=== PATIENT | female | born 1995 | race Caucasian/White ===

== ENCOUNTER 2016-06-10 17:26 | Emergency (ER) | payer OTHER, SELFPAY ==
[2016-06-10] MEDS ORDERED: KETOROLAC 30 MG/ML VIAL (J1885) As Ordered ONE (19:56)
--- NOTE | 2016-06-10 20:10 | REPUSA ---
CT of the abdomen and pelvis without contrast Clinical statement: Pain. Technique: Multiple axial CT images were obtained from the base of the lungs to the floor of the pelv is utilizing 5 mm axial slices without administration of contrast. Coronal and sagittal reconstructio ns were also obtained. No comparison is available. Findings: Chest: The visualized lung bases are clear. Abdomen: The kidneys are normal in size bilaterally. There is no evidence of hydronephrosis or nephro lithiasis. The liver, spleen, pancreas, gallbladder and adrenal glands are unremarkable. The aorta de monstrates normal caliber and contour. There is no abdominal lymphadenopathy or ascites. Pelvis: The bowel is unremarkable, with no obstructive or inflammatory changes. The appendix is nya l. The urinary bladder is within normal limits. There is no pelvic lymphadenopathy or ascites. The ot her pelvic structures appear unremarkable. Bones: There are no suspicious osseous abnormalities seen. Impression: Unremarkable CT examination of the abdomen and pelvis.
[2016-06-10 20:15] LABS: BASO % 0.4 % (0.0-1.0); EOS # 0.1 K/mm3 (0.0-0.50); EOS % 1.5 % (0.0-3.0); LARGE UNSTAINED CELL # 0.2 K/mm3 (0.0-0.4); LARGE UNSTAINED CELL % 2.1 % (0.0-4.0); LYMPH # 2.4 K/mm3 (1.5-6.5); MEAN CORPUSCULAR HGB CONC 33.8 g/dl (32.0-36.5); MEAN CORPUSCULAR VOLUME 88.9 fl (80.0-96.0); MONO # 0.5 K/mm3 (0.0-0.8); MONO % 5.8 % (0.0-5.0); NEUTROPHILS # 5.1 K/mm3 (1.8-7.7); NEUTROPHILS % 61.1 % (36.0-66.0); PLATELET COUNT, AUTOMATED 298 k/mm3 (150-450); RED CELL DISTRIBUTION WIDTH 12.2 % (11.5-14.5); WHITE BLOOD COUNT 8.3 K/mm3 (4.0-10.0)
[2016-06-10 20:40] LABS: ANION GAP 6 MEQ/L (8-16); BLOOD UREA NITROGEN 9 MG/DL (7-18); CALCIUM LEVEL 9.5 MG/DL (8.5-10.1); CARBON DIOXIDE LEVEL 28 MEQ/L (21-32); CHLORIDE LEVEL 108 MEQ/L (98-107); GLUCOSE, FASTING 96 MG/DL (70-105); POTASSIUM SERUM 4.1 MEQ/L (3.5-5.1); SODIUM LEVEL 142 MEQ/L (136-145)
[2016-06-10] MEDS ORDERED: BACTRIM 160MG/800MG DS TAB As Ordered ONE (20:42)
--- NOTE | 2016-06-10 20:53 | EDDOCDS ---
Physician Documentation [facility] Name: Philippe Galvez Age: 20 yrs Sex: Female : 1995 Arrival Date: 06/10/2016 Time: 17:26 Bed I5 / M5 Private MD: NO PRIMARY PHYSICIAN, . Disposition: 06/10/16 20:44 Discharged to Home/Self Care. Impression: Urinary tract infection, site not specified, Other abdominal pain - bilateral flank pain. - Condition is Stable. - Discharge Instructions: Urinary Tract Infection. - Prescriptions for Bactrim DS 800- 160 mg Oral Tablet - take 1 tablet by ORAL route every 12 hours for 10 days; 20 tablet. - Medication Reconciliation, Local Pharmacy Hours form. - Follow up: Emergency Department; When: As needed; Reason: Worsening of conditions. [facility] up: [facility]; When: Call to arrange an appointment; Reason: Recheck today's complaints, Continuance of care, To establish care. - Problem is new. - Symptoms are unchanged. - Notes: YOUR BLOOD WORK AND CT SCAN DID NOT SHOW ANY SIGNS OF KIDNEY STONE OR KIDNEY INFECTION TODAY. PLEASE FOLLOW UP WITH YOUR PRIMARY CARE PROVIDER IN NEXT WEEK TO RECHECK YOUR SYMPTOMS. ANY WORSENING SYMPTOMS, PLEASE RETURN TO THE ER. TAKE THE ANTIBIOTIC DIRECTED UNTIL IT IS GONE. Historical: - Allergies: no known allergies; - Home Meds: 1. cranberry 400 mg oral cap daily - PMHx: Anemia; Arthritis; - PSHx: none; - Social history: Smoking status: Patient states former smoker of tobacco. No barriers to communication noted, The patient speaks fluent Kitt[place]. - Family history: Not pertinent. - : The pt / caregiver states he / she is not on anticoagulants. Home medication list is obtained from the patient. - Exposure Risk Screening:: None identified. 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 5 in. (165.10 cm) (R); 20:47 BP 121 / 78; Pulse 78; Resp 18; Temp 99.8(TE); Pulse Ox 97% on R/A; Pain 0/10; cp1 17:28 Body Mass Index 17.81 (48.53 kg, 165.10 cm) dd6 MDM: 18:01 UCG by Nursing ordered. dt4 18:02 Urinalysis Ordered. EDMS 18:02 Urine Culture Ordered. EDMS 19:30 IV Saline Lock ordered. dt4 19:30 ketorolac 15 mg IVP once ordered. dt4 19:32 CBC with Diff Ordered. EDMS 19:32 Basic Metabolic Profile Ordered. EDMS 19:32 CRP Ordered. EDMS 19:32 CT ABD & PELVIS: No Contrast Ordered. EDMS 20:25 Financial registration complete. zo 20:26 [facility] Payment Agreement was scanned into [employer] and attached to record. zo 20:37 Trimethoprim-Sulfamethoxazole 160 mg-800 mg (DS) 1 tabs PO once ordered. dt4 20:37 Urinalysis Reviewed. dt4 20:37 CBC with Diff Reviewed. dt4 20:37 CT ABD & PELVIS: No Contrast Reviewed. dt4 Point of Care Testing: Urine : 18:59 hCG Reading: Negative; Control Reading: Positive; ct3 Ranges: Administered Medications: 20:08 Drug: ketorolac 15 mg [ketorolac 30 mg/mL (1 mL) injection solution (0.5 mL)] Route: jmb IVP; Site: left antecubital; 20:46 Drug: Trimethoprim-Sulfamethoxazole 1 tabs [sulfamethoxazole 800 mg-trimethoprim 160 mg cp1 tablet (1 tabs)] Route: PO; Signatures: Dispatcher [facility] EDVT Marilu Miles RN RN kmg1 Tino Warren Rosemary, RN RN rs3 Daniel Roberts RN RN jmb Tschudi, Diane, PA-C PA-C dt4 Gledna David LPN cp1 The chart was reviewed and I authenticate all verbal orders and agree with the evaluation and treatment provided.Attachments: 20:26 [facility] Payment Agreement zo MTDD
--- NOTE | 2016-06-10 20:53 | EDDOCDS ---
Nurse's Notes [facility] Name: Philippe Galvez Age: 20 yrs Sex: Female : 1995 Arrival Date: 06/10/2016 Time: 17:26 Bed I5 / M5 Private MD: NO PRIMARY PHYSICIAN, . Diagnosis: Urinary tract infection, site not specified;Other abdominal pain-bilateral flank pain Presentation: 06/10 17:38 Presenting complaint: Patient states: pain/urgency with urination, Left flank pain for rs3 4 days. treated for UTI last week with antibiotic. Adult Sepsis Screening: Adult Sepsis Screening: Patient's respiratory rate is less than 22. Systolic blood pressure is greater than 100. Patient has a qSOFA score of 0- Negative Sepsis Screen. Suicide/Homicide risk assessment- the patient denies having any suicidal and/or homicidal ideations and does not present with any other emotional, behavioral or mental health complaints. Status: Patient is not a services rep or dependent. Transition of care: patient was not received from another setting of care. 17:38 Acuity: BROOK Level 3 rs3 17:38 Method Of Arrival: Walkin/Carried/Asstd rs3 Triage Assessment: 17:40 General: Appears in no apparent distress. Pain: Denies pain. HIV screening NA for this rs3 visit Offered previously. 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 cranberry 400 mg oral cap daily - PMHx: Anemia; Arthritis; - PSHx: none; - Social history: Smoking status: Patient states former smoker of tobacco. No barriers to communication noted, The patient speaks fluent German. - Family history: Not pertinent. - : The pt / caregiver states he / she is not on anticoagulants. Home medication list is obtained from the patient. - Exposure Risk Screening:: None identified. Screenin:12 Screening information is obtained from the patient. Fall risk: No risks identified. kmg1 Assistance ADL's: requires no assistance with activities of daily living. Abuse/DV Screen: The patient / caregiver reports he/she is: not in a situation that causes fear, pain or injury. Nutritional screening: No deficits noted. Advance Directives: Currently, there is no health care proxy. There is no active DNR order. home support is adequate. Assessment: 19:12 General: Appears uncomfortable, Behavior is cooperative, crying. Pain: Location: right kmg1 flank, right lower back, suprapubic area, right inguinal area and right iliac crest Pain currently is 10 out of 10 on a pain scale. Quality of pain is described as pressure, sharp. : Reports pain in right in suprapubic area flank(s) in lower back Denies urinary frequency, urgency. 20:03 General: Appears in no apparent distress, comfortable, Behavior is appropriate for age, jmb cooperative. Neurological: Level of Consciousness is awake, alert, obeys commands, Oriented to person, place, time, Speech is normal, Facial symmetry appears normal, Facial symmetry: tongue is midline. Cardiovascular: Capillary refill < 3 seconds Heart tones present Pulses are all present. Respiratory: Airway is patent Respiratory effort is even, unlabored, Respiratory pattern is regular, symmetrical, Breath sounds are clear bilaterally. GI: Abdomen is non- distended Bowel sounds present X 4 quads. Abd is soft X 4 quads. Derm: Skin is pink, warm & dry. Musculoskeletal: Range of motion intact in all extremities. 20:50 General: Patient instructed on discharge instructions. Patient asked if there were any jmb questions regarding discharge, patient stated no. IV discontinued per hospital policy. Patient signed discharge instructions. Patient discharged in stable condition. . Vital Signs: 17:28 BP 132 / 74; Pulse 80; Resp 18 S; Temp 98.4(O); Pulse Ox 100% on R/A; Weight 48.53 kg dd6 (R); Height 5 ft. 5 in. (165.10 cm) (R); 20:47 BP 121 / 78; Pulse 78; Resp 18; Temp 99.8(TE); Pulse Ox 97% on R/A; Pain 0/10; cp1 17:28 Body Mass Index 17.81 (48.53 kg, 165.10 cm) dd6 Vitals: 17:28 Log In Time: June 10, 2016 at 17:26. dd6 ED Course: 17:28 Patient visited by Marvin Brownlee PCA. dd6 17:28 NO PRIMARY PHYSICIAN, . is Private Physician. dd6 17:28 Patient moved to Waiting dd6 17:29 Patient moved to Pre RCE dd6 17:39 Triage Initiated rs3 18:53 Urine Culture Sent. ct3 18:53 Urinalysis Sent. ct3 19:10 Patient moved to Triage 3 ms2 19:12 The patient / caregiver is instructed regarding the plan of care and ED course. kmg1 19:16 Sujey Childress PA-C is PHCP. dt4 19:16 Artis Argueta DO is Attending Physician. dt4 19:16 Patient visited by Sujey Childress PA-C. dt4 19:16 Patient visited by Marilu Miles RN. kmg1 19:19 Patient moved to I5 / kmg1 19:52 Patient visited by Glenda David LPN. cp1 20:03 CBC with Diff Sent. jmb 20:03 Basic Metabolic Profile Sent. aidenb 20:03 CRP Sent. aidneb 20:03 Inserted saline lock: 20 gauge in left antecubital area and blood collected. The [facility] patient tolerated the procedure well. Labs drawn. (by ED staff). Sent per order to lab. 20:05 Patient visited by Daniel Roberts RN. b 20:20 CT ABD & PELVIS: No Contrast Returned. EDMS 20:26 [facility] Payment Agreement was scanned into [employer] and attached to record. zo 20:41 Patient visited by Glenda David LPN. cp1 20:43 [facility] is Referral Physician. dt4 20:47 Discontinued lock bleeding controlled, pressure dressing applied, No redness/swelling cp1 at site. 20:50 No procedures done that require assistance. lester Administered Medications: 20:08 Drug: ketorolac 15 mg [ketorolac 30 mg/mL (1 mL) injection solution (0.5 mL)] Route: b IVP; Site: left antecubital; 20:46 Drug: Trimethoprim-Sulfamethoxazole 1 tabs [sulfamethoxazole 800 mg-trimethoprim 160 mg cp1 tablet (1 tabs)] Route: PO; Point of Care Testing: Urine : 18:59 hCG Reading: Negative; Control Reading: Positive; ct3 Ranges: Order Results: Lab Order: Urinalysis; SPEC'M 06/10/16 18:52 Test: APPEARANCE, URINE; Value: CLOUDY; Range: CLEAR; Abnormal: Above high normal; Status: F Test: COLOR, URINE; Value: YELLOW; Range: YELLOW; Status: F Test: PH,URINE; Value: 6.0; Range: 5.0-9.0; Units: UNITS; Status: F Test: SPECIFIC GRAVITY URINE AUTO; Value: 1.017; Range: 1.002-1.035; Status: F Test: PROTEIN, URINE AUTO; Value: NEGATIVE; Range: NEGATIVE; Units: mg/dL; Status: F Test: GLUCOSE, URINE (UA) AUTO; Value: NEGATIVE; Range: NEGATIVE; Units: mg/dL; Status: F Test: KETONE, URINE AUTO; Value: NEGATIVE; Range: NEGATIVE; Units: mg/dL; Status: F Test: UROBILINOGEN, URINE AUTO; Value: 0.2; Range: 0.0-2.0; Units: mg/dL; Status: F Test: BILIRUBIN, URINE AUTO; Value: NEGATIVE; Range: NEGATIVE; Status: F Test: NITRITE, URINE AUTO; Value: NEGATIVE; Range: NEGATIVE; Status: F Test: LEUKOCYTE ESTERASE, URINE AUTO; Value: 3+; Range: NEGATIVE; Abnormal: Above high normal; Status: F Test: BLOOD, URINE BLOOD; Value: 2+; Range: NEGATIVE; Abnormal: Above high normal; Status: F Test: WBC, URINE AUTO; Value: TNTC; Range: 0-3; Abnormal: Above high normal; Units: /HPF; Status: F Test: RBC, URINE AUTO; Value: 35; Range: 0-3; Abnormal: Above high normal; Units: /HPF; Status: F Test: BACTERIA, URINE AUTO; Value: 1+; Range: NEGATIVE; Abnormal: Above high normal; Status: F Test: SQUAMOUS EPITHELIAL CELL UR AU; Value: 1; Range: 0-6; Units: /HPF; Status: F Test: MUCUS, URINE; Value: SMALL; Range: NEGATIVE; Status: F Test: HYALINE CAST, URINE AUTO; Value: 0; Range: 0-1; Units: /LPF; Status: F Lab Order: CBC with Diff; SPEC'M 06/10/16 19:56 Test: WHITE BLOOD COUNT; Value: 8.3; Range: 4.0-10.0; Units: K/mm3; Status: F Test: RED BLOOD COUNT; Value: 4.40; Range: 4.00-5.40; Units: M/mm3; Status: F Test: HEMOGLOBIN; Value: 13.2; Range: 12.0-16.0; Units: g/dl; Status: F Test: HEMATOCRIT; Value: 39.1; Range: 36.0-47.0; Units: %; Status: F Test: MEAN CORPUSCULAR VOLUME; Value: 88.9; Range: 80.0-96.0; Units: fl; Status: F Test: MEAN CORPUSCULAR HEMOGLOBIN; Value: 30.0; Range: 27.0-33.0; Units: pg; Status: F Test: MEAN CORPUSCULAR HGB CONC; Value: 33.8; Range: 32.0-36.5; Units: g/dl; Status: F Test: RED CELL DISTRIBUTION WIDTH; Value: 12.2; Range: 11.5-14.5; Units: %; Status: F Test: PLATELET COUNT, AUTOMATED; Value: 298; Range: 150-450; Units: k/mm3; Status: F Test: NEUTROPHILS %; Value: 61.1; Range: 36.0-66.0; Units: %; Status: F Test: LYMPH %; Value: 29.0; Range: 24.0-44.0; Units: %; Status: F Test: MONO %; Value: 5.8; Range: 0.0-5.0; Abnormal: Above high normal; Units: %; Status: F Test: EOS %; Value: 1.5; Range: 0.0-3.0; Units: %; Status: F Test: BASO %; Value: 0.4; Range: 0.0-1.0; Units: %; Status: F Test: LARGE UNSTAINED CELL %; Value: 2.1; Range: 0.0-4.0; Units: %; Status: F Test: NEUTROPHILS #; Value: 5.1; Range: 1.8-7.7; Units: K/mm3; Status: F Test: LYMPH #; Value: 2.4; Range: 1.5-6.5; Units: K/mm3; Status: F Test: MONO #; Value: 0.5; Range: 0.0-0.8; Units: K/mm3; Status: F Test: EOS #; Value: 0.1; Range: 0.0-0.50; Units: K/mm3; Status: F Test: BASO #; Value: 0.0; Range: 0.0-0.2; Units: K/mm3; Status: F Test: LARGE UNSTAINED CELL #; Value: 0.2; Range: 0.0-0.4; Units: K/mm3; Status: F Lab Order: Basic Metabolic Profile; SPEC'M 06/10/16 19:56 Test: GLUCOSE, FASTING; Value: 96; Range: 70-105; Units: MG/DL; Status: F Test: BLOOD UREA NITROGEN; Value: 9; Range: 7-18; Units: MG/DL; Status: F Test: CREATININE FOR GFR; Value: 0.70; Range: 0.55-1.02; Units: MG/DL; Status: F Test: SODIUM LEVEL; Value: 142; Range: 136-145; Units: MEQ/L; Status: F Test: POTASSIUM SERUM; Value: 4.1; Range: 3.5-5.1; Units: MEQ/L; Status: F Test: CHLORIDE LEVEL; Value: 108; Range: 98-107; Abnormal: Above high normal; Units: MEQ/L; Status: F Test: CARBON DIOXIDE LEVEL; Value: 28; Range: 21-32; Units: MEQ/L; Status: F Test: ANION GAP; Value: 6; Range: 8-16; Abnormal: Below low normal; Units: MEQ/L; Status: F Test: CALCIUM LEVEL; Value: 9.5; Range: 8.5-10.1; Units: MG/DL; Status: F Lab Order: CRP; SPEC'M 06/10/16 19:56 Test: C REACTIVE PROTEIN QUANTITATIV; Value: < 0.30; Range: 0.00-0.30; Units: MG/DL; Status: F Radiology Order: CT ABD & PELVIS: No Contrast Test: CT ABD & PELVIS: No Contrast REASON FOR EXAMINATION: BILAT FLANK PAIN, HX OF UTI AND STONES; ; CT of the abdomen and pelvis without contrast; Clinical statement: Pain.; Technique: Multiple axial CT images were obtained from the base of the lungs to the floor of the pelv; is utilizing 5 mm axial slices without administration of contrast. Coronal and sagittal reconstructio; ns were also obtained.; No comparison is available.; Findings:; Chest: The visualized lung bases are clear.; Abdomen: The kidneys are normal in size bilaterally. There is no evidence of hydronephrosis or nephro; lithiasis. The liver, spleen, pancreas, gallbladder and adrenal glands are unremarkable. The aorta de; monstrates normal caliber and contour. There is no abdominal lymphadenopathy or ascites.; Pelvis: The bowel is unremarkable, with no obstructive or inflammatory changes. The appendix is nya; l. The urinary bladder is within normal limits. There is no pelvic lymphadenopathy or ascites. The ot; her pelvic structures appear unremarkable.; Bones: There are no suspicious osseous abnormalities seen.; Impression: Unremarkable CT examination of the abdomen and pelvis.; ; Outcome: 20:44 Discharge ordered by Provider. dt4 20:50 Discharge Assessment: Patient awake, alert and oriented x 3. No cognitive and/or jmb functional deficits noted. Patient verbalized understanding of disposition instructions. Patient awake and alert. obeys commands, Oriented to person, place and time. Patient verbalized understanding of disposition instructions. Patient has no functional deficits. patient administered narcotics - no. The following High Risk Discharge criteria are identified: None. Discharged to home ambulatory, with significant other. Condition: stable Condition: improved. Discharge instructions given to patient, Instructed on discharge instructions, follow up and referral plans. medication usage, Demonstrated understanding of instructions, medications, Pt was receptive of discharge instructions/ teaching. Prescriptions given X 1. CT Study completed. Property sent home with patient. 20:52 Patient left the ED. lester Signatures: Dispatcher [employer] EDMS Nicolás Marinelli RN RN ms2 Marilu Miles RN RN kmg1 Tino Warren Daniell, CREAM BUYER CREAM BUYER dd6 Marianela Guzman RN RN rs3 Glenda David,BLANKET FOLDER BLANKET FOLDER cp1 Chloe Arnett, CREAM BUYER CREAM BUYER ct3 Daniel Roberts RN RN jmb Tschudi, Diane, NOEMI PADelC dt4 MTDD
--- NOTE | 2016-06-12 21:54 | EDDOCDS ---
Nurse's Notes [facility] Name: Philippe Galvez Age: 20 yrs Sex: Female : 1995 Arrival Date: 06/10/2016 Time: 17:26 Bed I5 / M5 Private MD: NO PRIMARY PHYSICIAN, . Diagnosis: Urinary tract infection, site not specified;Other abdominal pain-bilateral flank pain Presentation: 06/10 17:38 Presenting complaint: Patient states: pain/urgency with urination, Left flank pain for rs3 4 days. treated for UTI last week with antibiotic. Adult Sepsis Screening: Adult Sepsis Screening: Patient's respiratory rate is less than 22. Systolic blood pressure is greater than 100. Patient has a qSOFA score of 0- Negative Sepsis Screen. Suicide/Homicide risk assessment- the patient denies having any suicidal and/or homicidal ideations and does not present with any other emotional, behavioral or mental health complaints. 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 Transition of care: patient was not received from another setting of care. 17:38 Acuity: BROOK Level 3 rs3 17:38 Method Of Arrival: Walkin/Carried/Asstd rs3 Triage Assessment: 17:40 General: Appears in no apparent distress. Pain: Denies pain. HIV screening NA for this rs3 visit Offered previously. 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 cranberry 400 mg oral cap daily - PMHx: Anemia; Arthritis; - PSHx: none; - Social history: Smoking status: Patient states former smoker of tobacco. No barriers to communication noted, The patient speaks fluent Portuguese. - Family history: Not pertinent. - : The pt / caregiver states he / she is not on anticoagulants. Home medication list is obtained from the patient. - Exposure Risk Screening:: None identified. Screenin:12 Screening information is obtained from the patient. Fall risk: No risks identified. kmg1 Assistance ADL's: requires no assistance with activities of daily living. Abuse/DV Screen: The patient / caregiver reports he/she is: not in a situation that causes fear, pain or injury. Nutritional screening: No deficits noted. Advance Directives: Currently, there is no health care proxy. There is no active DNR order. home support is adequate. Assessment: 19:12 General: Appears uncomfortable, Behavior is cooperative, crying. Pain: Location: right kmg1 flank, right lower back, suprapubic area, right inguinal area and right iliac crest Pain currently is 10 out of 10 on a pain scale. Quality of pain is described as pressure, sharp. : Reports pain in right in suprapubic area flank(s) in lower back Denies urinary frequency, urgency. 20:03 General: Appears in no apparent distress, comfortable, Behavior is appropriate for age, jmb cooperative. Neurological: Level of Consciousness is awake, alert, obeys commands, Oriented to person, place, time, Speech is normal, Facial symmetry appears normal, Facial symmetry: tongue is midline. Cardiovascular: Capillary refill < 3 seconds Heart tones present Pulses are all present. Respiratory: Airway is patent Respiratory effort is even, unlabored, Respiratory pattern is regular, symmetrical, Breath sounds are clear bilaterally. GI: Abdomen is non- distended Bowel sounds present X 4 quads. Abd is soft X 4 quads. Derm: Skin is pink, warm & dry. Musculoskeletal: Range of motion intact in all extremities. 20:50 General: Patient instructed on discharge instructions. Patient asked if there were any jmb questions regarding discharge, patient stated no. IV discontinued per hospital policy. Patient signed discharge instructions. Patient discharged in stable condition. . Vital Signs: 17:28 BP 132 / 74; Pulse 80; Resp 18 S; Temp 98.4(O); Pulse Ox 100% on R/A; Weight 48.53 kg dd6 (R); Height 5 ft. 5 in. (165.10 cm) (R); 20:47 BP 121 / 78; Pulse 78; Resp 18; Temp 99.8(TE); Pulse Ox 97% on R/A; Pain 0/10; cp1 17:28 Body Mass Index 17.81 (48.53 kg, 165.10 cm) dd6 Vitals: 17:28 Log In Time: June 10, 2016 at 17:26. dd6 ED Course: 17:28 Patient visited by Marvin Brownlee PCA. dd6 17:28 NO PRIMARY PHYSICIAN, . is Private Physician. dd6 17:28 Patient moved to Waiting dd6 17:29 Patient moved to Pre RCE dd6 17:39 Triage Initiated rs3 18:53 Urine Culture Sent. ct3 18:53 Urinalysis Sent. ct3 19:10 Patient moved to Triage 3 ms2 19:12 The patient / caregiver is instructed regarding the plan of care and ED course. kmg1 19:16 Sujey Childress PA-C is PHCP. dt4 19:16 Artis Argueta DO is Attending Physician. dt4 19:16 Patient visited by Sujey Childress PA-C. dt4 19:16 Patient visited by Marilu Miles RN. kmg1 19:19 Patient moved to I5 / M5 kmg1 19:52 Patient visited by Glenda David LPN. cp1 20:03 CBC with Diff Sent. jmb 20:03 Basic Metabolic Profile Sent. aidenb 20:03 CRP Sent. lester 20:03 Inserted saline lock: 20 gauge in left antecubital area and blood collected. The [facility] patient tolerated the procedure well. Labs drawn. (by ED staff). Sent per order to lab. 20:05 Patient visited by Daniel Roberts RN. b 20:20 CT ABD & PELVIS: No Contrast Returned. EDMS 20:26 [facility] Payment Agreement was scanned into [employer] and attached to record. zo 20:41 Patient visited by Glenda David LPN. cp1 20:43 [facility] is Referral Physician. dt4 20:47 Discontinued lock bleeding controlled, pressure dressing applied, No redness/swelling cp1 at site. 20:50 No procedures done that require assistance. lester 06/11 12:55 T-Sheet-- Draft Copy was scanned into [employer] and attached to record. gb 12:55 Radiology Report was scanned into [employer] and attached to record. gb Administered Medications: 06/10 20:08 Drug: ketorolac 15 mg [ketorolac 30 mg/mL (1 mL) injection solution (0.5 mL)] Route: lester IVP; Site: left antecubital; 20:46 Drug: Trimethoprim-Sulfamethoxazole 1 tabs [sulfamethoxazole 800 mg-trimethoprim 160 mg cp1 tablet (1 tabs)] Route: PO; Point of Care Testing: Urine : 18:59 hCG Reading: Negative; Control Reading: Positive; ct3 Ranges: Order Results: Lab Order: Urinalysis; SPEC'M 06/10/16 18:52 Test: APPEARANCE, URINE; Value: CLOUDY; Range: CLEAR; Abnormal: Above high normal; Status: F Test: COLOR, URINE; Value: YELLOW; Range: YELLOW; Status: F Test: PH,URINE; Value: 6.0; Range: 5.0-9.0; Units: UNITS; Status: F Test: SPECIFIC GRAVITY URINE AUTO; Value: 1.017; Range: 1.002-1.035; Status: F Test: PROTEIN, URINE AUTO; Value: NEGATIVE; Range: NEGATIVE; Units: mg/dL; Status: F Test: GLUCOSE, URINE (UA) AUTO; Value: NEGATIVE; Range: NEGATIVE; Units: mg/dL; Status: F Test: KETONE, URINE AUTO; Value: NEGATIVE; Range: NEGATIVE; Units: mg/dL; Status: F Test: UROBILINOGEN, URINE AUTO; Value: 0.2; Range: 0.0-2.0; Units: mg/dL; Status: F Test: BILIRUBIN, URINE AUTO; Value: NEGATIVE; Range: NEGATIVE; Status: F Test: NITRITE, URINE AUTO; Value: NEGATIVE; Range: NEGATIVE; Status: F Test: LEUKOCYTE ESTERASE, URINE AUTO; Value: 3+; Range: NEGATIVE; Abnormal: Above high normal; Status: F Test: BLOOD, URINE BLOOD; Value: 2+; Range: NEGATIVE; Abnormal: Above high normal; Status: F Test: WBC, URINE AUTO; Value: TNTC; Range: 0-3; Abnormal: Above high normal; Units: /HPF; Status: F Test: RBC, URINE AUTO; Value: 35; Range: 0-3; Abnormal: Above high normal; Units: /HPF; Status: F Test: BACTERIA, URINE AUTO; Value: 1+; Range: NEGATIVE; Abnormal: Above high normal; Status: F Test: SQUAMOUS EPITHELIAL CELL UR AU; Value: 1; Range: 0-6; Units: /HPF; Status: F Test: MUCUS, URINE; Value: SMALL; Range: NEGATIVE; Status: F Test: HYALINE CAST, URINE AUTO; Value: 0; Range: 0-1; Units: /LPF; Status: F Lab Order: Urine Culture; SPEC'M 06/10/16 18:52 Test: URINE CULTURE; Value: URINE CULTURE RESULT NO GROWTH; Status: F Lab Order: CBC with Diff; SPEC'M 06/10/16 19:56 Test: WHITE BLOOD COUNT; Value: 8.3; Range: 4.0-10.0; Units: K/mm3; Status: F Test: RED BLOOD COUNT; Value: 4.40; Range: 4.00-5.40; Units: M/mm3; Status: F Test: HEMOGLOBIN; Value: 13.2; Range: 12.0-16.0; Units: g/dl; Status: F Test: HEMATOCRIT; Value: 39.1; Range: 36.0-47.0; Units: %; Status: F Test: MEAN CORPUSCULAR VOLUME; Value: 88.9; Range: 80.0-96.0; Units: fl; Status: F Test: MEAN CORPUSCULAR HEMOGLOBIN; Value: 30.0; Range: 27.0-33.0; Units: pg; Status: F Test: MEAN CORPUSCULAR HGB CONC; Value: 33.8; Range: 32.0-36.5; Units: g/dl; Status: F Test: RED CELL DISTRIBUTION WIDTH; Value: 12.2; Range: 11.5-14.5; Units: %; Status: F Test: PLATELET COUNT, AUTOMATED; Value: 298; Range: 150-450; Units: k/mm3; Status: F Test: NEUTROPHILS %; Value: 61.1; Range: 36.0-66.0; Units: %; Status: F Test: LYMPH %; Value: 29.0; Range: 24.0-44.0; Units: %; Status: F Test: MONO %; Value: 5.8; Range: 0.0-5.0; Abnormal: Above high normal; Units: %; Status: F Test: EOS %; Value: 1.5; Range: 0.0-3.0; Units: %; Status: F Test: BASO %; Value: 0.4; Range: 0.0-1.0; Units: %; Status: F Test: LARGE UNSTAINED CELL %; Value: 2.1; Range: 0.0-4.0; Units: %; Status: F Test: NEUTROPHILS #; Value: 5.1; Range: 1.8-7.7; Units: K/mm3; Status: F Test: LYMPH #; Value: 2.4; Range: 1.5-6.5; Units: K/mm3; Status: F Test: MONO #; Value: 0.5; Range: 0.0-0.8; Units: K/mm3; Status: F Test: EOS #; Value: 0.1; Range: 0.0-0.50; Units: K/mm3; Status: F Test: BASO #; Value: 0.0; Range: 0.0-0.2; Units: K/mm3; Status: F Test: LARGE UNSTAINED CELL #; Value: 0.2; Range: 0.0-0.4; Units: K/mm3; Status: F Lab Order: Basic Metabolic Profile; SPEC'M 06/10/16 19:56 Test: GLUCOSE, FASTING; Value: 96; Range: 70-105; Units: MG/DL; Status: F Test: BLOOD UREA NITROGEN; Value: 9; Range: 7-18; Units: MG/DL; Status: F Test: CREATININE FOR GFR; Value: 0.70; Range: 0.55-1.02; Units: MG/DL; Status: F Test: SODIUM LEVEL; Value: 142; Range: 136-145; Units: MEQ/L; Status: F Test: POTASSIUM SERUM; Value: 4.1; Range: 3.5-5.1; Units: MEQ/L; Status: F Test: CHLORIDE LEVEL; Value: 108; Range: 98-107; Abnormal: Above high normal; Units: MEQ/L; Status: F Test: CARBON DIOXIDE LEVEL; Value: 28; Range: 21-32; Units: MEQ/L; Status: F Test: ANION GAP; Value: 6; Range: 8-16; Abnormal: Below low normal; Units: MEQ/L; Status: F Test: CALCIUM LEVEL; Value: 9.5; Range: 8.5-10.1; Units: MG/DL; Status: F Lab Order: CRP; SPEC'M 06/10/16 19:56 Test: C REACTIVE PROTEIN QUANTITATIV; Value: < 0.30; Range: 0.00-0.30; Units: MG/DL; Status: F Radiology Order: CT ABD & PELVIS: No Contrast Test: CT ABD & PELVIS: No Contrast REASON FOR EXAMINATION: BILAT FLANK PAIN, HX OF UTI AND STONES; ; CT of the abdomen and pelvis without contrast; Clinical statement: Pain.; Technique: Multiple axial CT images were obtained from the base of the lungs to the floor of the pelv; is utilizing 5 mm axial slices without administration of contrast. Coronal and sagittal reconstructio; ns were also obtained.; No comparison is available.; Findings:; Chest: The visualized lung bases are clear.; Abdomen: The kidneys are normal in size bilaterally. There is no evidence of hydronephrosis or nephro; lithiasis. The liver, spleen, pancreas, gallbladder and adrenal glands are unremarkable. The aorta de; monstrates normal caliber and contour. There is no abdominal lymphadenopathy or ascites.; Pelvis: The bowel is unremarkable, with no obstructive or inflammatory changes. The appendix is nya; l. The urinary bladder is within normal limits. There is no pelvic lymphadenopathy or ascites. The ot; her pelvic structures appear unremarkable.; Bones: There are no suspicious osseous abnormalities seen.; Impression: Unremarkable CT examination of the abdomen and pelvis.; ; Outcome: 20:44 Discharge ordered by Provider. dt4 20:50 Discharge Assessment: Patient awake, alert and oriented x 3. No cognitive and/or jmb functional deficits noted. Patient verbalized understanding of disposition instructions. Patient awake and alert. obeys commands, Oriented to person, place and time. Patient verbalized understanding of disposition instructions. Patient has no functional deficits. patient administered narcotics - no. The following High Risk Discharge criteria are identified: None. Discharged to home ambulatory, with significant other. Condition: stable Condition: improved. Discharge instructions given to patient, Instructed on discharge instructions, follow up and referral plans. medication usage, Demonstrated understanding of instructions, medications, Pt was receptive of discharge instructions/ teaching. Prescriptions given X 1. CT Study completed. Property sent home with patient. 20:52 Patient left the ED. jmb Signatures: Dispatcher [employer] EDMS Nicolás Marinelli RN RN ms2 Marilu Miles RN RN kmg1 Betty Tom, Reg Reg gb Kelvin, Tino zo Marvin Brownlee, CHANNEL SALES MANAGER CHANNEL SALES MANAGER dd6 Marianela Guzman RN RN rs3 Glenda David,MARKETING COMMUNITY LIAISON MARKETING COMMUNITY LIAISON cp1 Chloe Arnett, CHANNEL SALES MANAGER CHANNEL SALES MANAGER ct3 Roberts,Daniel,RN RN jmb Sujey Childress, PA-C PA-C dt4 Chart Complete MTDD
--- NOTE | 2016-06-12 21:54 | EDDOCDS ---
Physician Documentation [facility] Name: Philippe Galvez Age: 20 yrs Sex: Female : 1995 Arrival Date: 06/10/2016 Time: 17:26 Bed I5 / M5 Private MD: NO PRIMARY PHYSICIAN, . Disposition: 06/10/16 20:44 Discharged to Home/Self Care. Impression: Urinary tract infection, site not specified, Other abdominal pain - bilateral flank pain. - Condition is Stable. - Discharge Instructions: Urinary Tract Infection. - Prescriptions for Bactrim DS 800- 160 mg Oral Tablet - take 1 tablet by ORAL route every 12 hours for 10 days; 20 tablet. - Medication Reconciliation, Local Pharmacy Hours form. - Follow up: Emergency Department; When: As needed; Reason: Worsening of conditions. [facility]: [facility]; When: Call to arrange an appointment; Reason: Recheck today's complaints, Continuance of care, To establish care. - Problem is new. - Symptoms are unchanged. - Notes: YOUR BLOOD WORK AND CT SCAN DID NOT SHOW ANY SIGNS OF KIDNEY STONE OR KIDNEY INFECTION TODAY. PLEASE FOLLOW UP WITH YOUR PRIMARY CARE PROVIDER IN NEXT WEEK TO RECHECK YOUR SYMPTOMS. ANY WORSENING SYMPTOMS, PLEASE RETURN TO THE ER. TAKE THE ANTIBIOTIC DIRECTED UNTIL IT IS GONE. Historical: - Allergies: no known allergies; - Home Meds: 1. cranberry 400 mg oral cap daily - PMHx: Anemia; Arthritis; - PSHx: none; - Social history: Smoking status: Patient states former smoker of tobacco. No barriers to communication noted, The patient speaks fluent Italian. - Family history: Not pertinent. - : The pt / caregiver states he / she is not on anticoagulants. Home medication list is obtained from the patient. - Exposure Risk Screening:: None identified. 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 5 in. (165.10 cm) (R); 20:47 BP 121 / 78; Pulse 78; Resp 18; Temp 99.8(TE); Pulse Ox 97% on R/A; Pain 0/10; cp1 17:28 Body Mass Index 17.81 (48.53 kg, 165.10 cm) dd6 MDM: 18:01 UCG by Nursing ordered. dt4 18:02 Urinalysis Ordered. EDMS 18:02 Urine Culture Ordered. EDMS 19:30 IV Saline Lock ordered. dt4 19:30 ketorolac 15 mg IVP once ordered. dt4 19:32 CBC with Diff Ordered. EDMS 19:32 Basic Metabolic Profile Ordered. EDMS 19:32 CRP Ordered. EDMS 19:32 CT ABD & PELVIS: No Contrast Ordered. EDMS 20:25 Financial registration complete. zo 20:26 [facility] Payment Agreement was scanned into [employer] and attached to record. zo 20:37 Trimethoprim-Sulfamethoxazole 160 mg-800 mg (DS) 1 tabs PO once ordered. dt4 20:37 Urinalysis Reviewed. dt4 20:37 CBC with Diff Reviewed. dt4 20:37 CT ABD & PELVIS: No Contrast Reviewed. dt4 06/11 12:55 T-Sheet-- Draft Copy was scanned into [employer] and attached to record. gb 12:55 Radiology Report was scanned into [employer] and attached to record. gb Point of Care Testing: Urine : 06/10 18:59 hCG Reading: Negative; Control Reading: Positive; ct3 Ranges: Administered Medications: 20:08 Drug: ketorolac 15 mg [ketorolac 30 mg/mL (1 mL) injection solution (0.5 mL)] Route: jmb IVP; Site: left antecubital; 20:46 Drug: Trimethoprim-Sulfamethoxazole 1 tabs [sulfamethoxazole 800 mg-trimethoprim 160 mg cp1 tablet (1 tabs)] Route: PO; Signatures: Dispatcher [employer] EDMS Marilu Miles RN RN kmg1 Betty Tom, Reg Reg Tino Neumann Rosemary, RN RN rs3 Daniel Roberts RN RN Sujey Yi, PABrady PADelC dt4 Glenda David LPN cp1 The chart was reviewed and I authenticate all verbal orders and agree with the evaluation and treatment provided.Attachments: 20:26 [facility] Payment Agreement zo 06/11 12:55 T-Sheet-- Draft Copy gb Chart Complete MTDD
--- NOTE | 2016-06-12 21:54 | EDDOCDS ---
Physician Documentation [facility] Name: Philippe Galvez Age: 20 yrs Sex: Female : 1995 Arrival Date: 06/10/2016 Time: 17:26 Bed I5 / M5 Private MD: NO PRIMARY PHYSICIAN, . Disposition: 06/10/16 20:44 Discharged to Home/Self Care. Impression: Urinary tract infection, site not specified, Other abdominal pain - bilateral flank pain. - Condition is Stable. - Discharge Instructions: Urinary Tract Infection. - Prescriptions for Bactrim DS 800- 160 mg Oral Tablet - take 1 tablet by ORAL route every 12 hours for 10 days; 20 tablet. - Medication Reconciliation, Local Pharmacy Hours form. - Follow up: Emergency Department; When: As needed; Reason: Worsening of conditions. Follow [facility]: [facility]; When: Call to arrange an appointment; Reason: Recheck today's complaints, Continuance of care, To establish care. - Problem is new. - Symptoms are unchanged. - Notes: YOUR BLOOD WORK AND CT SCAN DID NOT SHOW ANY SIGNS OF KIDNEY STONE OR KIDNEY INFECTION TODAY. PLEASE FOLLOW UP WITH YOUR PRIMARY CARE PROVIDER IN NEXT WEEK TO RECHECK YOUR SYMPTOMS. ANY WORSENING SYMPTOMS, PLEASE RETURN TO THE ER. TAKE THE ANTIBIOTIC DIRECTED UNTIL IT IS GONE. Historical: - Allergies: no known allergies; - Home Meds: 1. cranberry 400 mg oral cap daily - PMHx: Anemia; Arthritis; - PSHx: none; - Social history: Smoking status: Patient states former smoker of tobacco. No barriers to communication noted, The patient speaks fluent Emirati. - Family history: Not pertinent. - : The pt / caregiver states he / she is not on anticoagulants. Home medication list is obtained from the patient. - Exposure Risk Screening:: None identified. 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 5 in. (165.10 cm) (R); 20:47 BP 121 / 78; Pulse 78; Resp 18; Temp 99.8(TE); Pulse Ox 97% on R/A; Pain 0/10; cp1 17:28 Body Mass Index 17.81 (48.53 kg, 165.10 cm) dd6 MDM: 18:01 UCG by Nursing ordered. dt4 18:02 Urinalysis Ordered. EDMS 18:02 Urine Culture Ordered. EDMS 19:30 IV Saline Lock ordered. dt4 19:30 ketorolac 15 mg IVP once ordered. dt4 19:32 CBC with Diff Ordered. EDMS 19:32 Basic Metabolic Profile Ordered. EDMS 19:32 CRP Ordered. EDMS 19:32 CT ABD & PELVIS: No Contrast Ordered. EDMS 20:25 Financial registration complete. zo 20:26 [facility] Payment Agreement was scanned into [employer] and attached to record. zo 20:37 Trimethoprim-Sulfamethoxazole 160 mg-800 mg (DS) 1 tabs PO once ordered. dt4 20:37 Urinalysis Reviewed. dt4 20:37 CBC with Diff Reviewed. dt4 20:37 CT ABD & PELVIS: No Contrast Reviewed. dt4 06/11 12:55 T-Sheet-- Draft Copy was scanned into [employer] and attached to record. gb 12:55 Radiology Report was scanned into [employer] and attached to record. gb Point of Care Testing: Urine : 06/10 18:59 hCG Reading: Negative; Control Reading: Positive; ct3 Ranges: Administered Medications: 20:08 Drug: ketorolac 15 mg [ketorolac 30 mg/mL (1 mL) injection solution (0.5 mL)] Route: jmb IVP; Site: left antecubital; 20:46 Drug: Trimethoprim-Sulfamethoxazole 1 tabs [sulfamethoxazole 800 mg-trimethoprim 160 mg cp1 tablet (1 tabs)] Route: PO; Signatures: Dispatcher [employer] EDMS Marilu Miles RN RN kmg1 Betty Tom, Reg Reg Tino Neumann Rosemary, RN RN rs3 Daniel Roberts RN RN Sujey Yi, PABrady PADelC dt4 Glenda David LPN cp1 The chart was reviewed and I authenticate all verbal orders and agree with the evaluation and treatment provided.Attachments: 20:26 [facility] Payment Agreement zo 06/11 12:55 T-Sheet-- Draft Copy gb Chart Complete MTDD
== END 2016-06-10 20:52 | disposition home or self-care (01) ==
LOC: M ED 17:26
DX: N39.0 Urinary tract infection, site not specified (principal); D64.9 Anemia, unspecified; M19.90 Unspecified osteoarthritis, unspecified site; Z87.891 Personal history of nicotine dependence
CPT/HCPCS: 36415; 74176; 80048; 81001; 81025; 85025; 86140; 87086; 96374; 99284; J1885

== ENCOUNTER 2016-08-16 09:35 | Emergency (ER) | payer OTHER ==
[~2016-08-16] VITALS: Ht 165.1 cm; Wt 45.4 kg
[2016-08-16 13:12] LABS: MEAN CORPUSCULAR HEMOGLOBIN 29.2 pg (27.0-33.0); MEAN CORPUSCULAR VOLUME 88.5 fl (80.0-96.0); RED CELL DISTRIBUTION WIDTH 12.1 % (11.5-14.5); WHITE BLOOD COUNT 8.1 K/mm3 (4.0-10.0)
[2016-08-16 13:31] LABS: CONTROL LINE HCG INT CTR LINE PRESENT
[2016-08-16 13:46] LABS: ALBUMIN 4.2 GM/DL (3.2-5.2); ALBUMIN/GLOBULIN RATIO 1.14 (1.00-1.93); ALKALINE PHOSPHATASE 66 U/L (45-117); ALT/SGPT 17 U/L (12-78); ANION GAP 7 MEQ/L (8-16); AST/SGOT 17 U/L (15-37); BILIRUBIN,DIRECT 0.1 MG/DL (0.0-0.2); BILIRUBIN,TOTAL 0.4 MG/DL (0.2-1.0); BLOOD UREA NITROGEN 9 MG/DL (7-18); CALCIUM LEVEL 9.1 MG/DL (8.5-10.1); CARBON DIOXIDE LEVEL 26 MEQ/L (21-32); CHLORIDE LEVEL 108 MEQ/L (98-107); CREATININE FOR GFR 0.73 MG/DL (0.55-1.02); GLUCOSE, FASTING 86 MG/DL (70-105); POTASSIUM SERUM 3.8 MEQ/L (3.5-5.1); SODIUM LEVEL 141 MEQ/L (136-145); TOTAL PROTEIN 7.9 GM/DL (6.4-8.2)
[2016-08-16 13:48] LABS: METHADONE URINE NEGATIVE (NEGATIVE)
[2016-08-16 14:32] VITALS: BP 149/75
== END 2016-08-16 14:30 | disposition home or self-care (01) ==
LOC: M ED 10:05
DX: Z76.0 Encounter for issue of repeat prescription (principal); F31.9 Bipolar disorder, unspecified; F25.9 Schizoaffective disorder, unspecified; F41.9 Anxiety disorder, unspecified; D64.9 Anemia, unspecified
CPT/HCPCS: 36415; 80048; 80076; 80306; 84443; 84703; 85027; 99285; G0480

== ENCOUNTER 2016-10-06 14:07 | Emergency (ER) | payer OTHER ==
[~2016-10-06] VITALS: Ht 167.6 cm; Wt 45.4 kg
[2016-10-06] MEDS ORDERED: DERMABOND TOPICAL SKIN ADHESIVE TOP ONE (15:00)
[2016-10-06 15:30] LABS: MEAN CORPUSCULAR HEMOGLOBIN 30.6 pg (27.0-33.0); MEAN CORPUSCULAR HGB CONC 34.7 g/dl (32.0-36.5); MEAN CORPUSCULAR VOLUME 88.2 fl (80.0-96.0); RED CELL DISTRIBUTION WIDTH 12.1 % (11.5-14.5); WHITE BLOOD COUNT 7.6 K/mm3 (4.0-10.0)
[2016-10-06 15:36] VITALS: BP 122/76
[2016-10-06 15:43] LABS: CONTROL LINE HCG INT CTR LINE PRESENT
[2016-10-06 15:49] LABS: METHADONE URINE NEGATIVE (NEGATIVE)
[2016-10-06 16:01] LABS: ALBUMIN 4.3 GM/DL (3.2-5.2); ALBUMIN/GLOBULIN RATIO 1.43 (1.00-1.93); ALKALINE PHOSPHATASE 56 U/L (45-117); ALT/SGPT 15 U/L (12-78); ANION GAP 8 MEQ/L (8-16); AST/SGOT 14 U/L (15-37); BILIRUBIN,DIRECT 0.2 MG/DL (0.0-0.2); BILIRUBIN,TOTAL 0.6 MG/DL (0.2-1.0); BLOOD UREA NITROGEN 9 MG/DL (7-18); CALCIUM LEVEL 9.1 MG/DL (8.5-10.1); CARBON DIOXIDE LEVEL 25 MEQ/L (21-32); CHLORIDE LEVEL 108 MEQ/L (98-107); CREATININE FOR GFR 0.82 MG/DL (0.55-1.02); GLUCOSE, FASTING 92 MG/DL (70-105); POTASSIUM SERUM 4.8 MEQ/L (3.5-5.1); SODIUM LEVEL 141 MEQ/L (136-145); TOTAL PROTEIN 7.3 GM/DL (6.4-8.2)
[2016-10-06] MEDS ORDERED: BACI500O8 TOP (16:50)
== END 2016-10-06 17:22 | disposition home or self-care (01) ==
LOC: M ED 15:03
DX: S41.112A Laceration without foreign body of left upper arm, initial encounter (principal); X83.8XXA Intentional self-harm by other specified means, initial encounter; Y92.9 Unspecified place or not applicable; Y93.9 Activity, unspecified; Y99.9 Unspecified external cause status; F60.3 Borderline personality disorder
CPT/HCPCS: 12001; 80048; 80076; 80306; 84443; 84703; 85027; 99284; G0480

== ENCOUNTER 2016-12-07 15:37 | Emergency (ER) | payer OTHER ==
[~2016-12-07] VITALS: Ht 165.1 cm; Wt 49.1 kg
[~2016-12-07 15:37] MED LIST changes: -ALPR1TAB3 PO; -ARIP1TAB4 PO; -HYDR1CAP25; -LATU40TA PO; -LITH300T2 PO; -ONDA4TAB5 PO; -QUET1TAB7 PO; -REGL10TA6 PO
[2016-12-07 15:38] VITALS: BP 128/75
== END 2016-12-07 17:05 | disposition left against medical advice (07) ==
LOC: M ED 15:37
DX: R05 Cough (principal); Z53.21 Procedure and treatment not carried out due to patient leaving prior to being seen by health care provider

== ENCOUNTER → 2016-12-07 | Outpatient (REF) | payer OTHER ==
[~2016-12-07] MED LIST: ALPR1TAB3 PO; ARIP1TAB4 PO; BACI500O8 TOP; HYDR1CAP25; LATU40TA PO; LITH300T2 PO; ONDA4TAB5 PO; QUET1TAB7 PO; REGL10TA6 PO
== END ==
LOC: M LAB REF 09:36
PROVIDERS: ATTEND Physician Assistant
DX: J03.90 Acute tonsillitis, unspecified (principal)

== ENCOUNTER → 2017-01-20 | Outpatient (CLI) | payer OTHER ==
[~2017-01-20] MED LIST changes: +ALPR1TAB3 PO; +ARIP1TAB4 PO; +HYDR1CAP25; +LATU40TA PO; +LITH300T2 PO; +ONDA4TAB5 PO; +QUET1TAB7 PO; +REGL10TA6 PO
[2017-01-20 15:51] LABS: BASO % 0.3 % (0.0-1.0); EOS % 0.9 % (0.0-3.0); LARGE UNSTAINED CELL # 0.1 K/mm3 (0.0-0.4); LARGE UNSTAINED CELL % 1.4 % (0.0-4.0); LYMPH # 1.5 K/mm3 (1.5-6.5); LYMPH % 24.3 % (24.0-44.0); MEAN CORPUSCULAR HEMOGLOBIN 30.1 pg (27.0-33.0); MEAN CORPUSCULAR HGB CONC 33.3 g/dl (32.0-36.5); MEAN CORPUSCULAR VOLUME 90.3 fl (80.0-96.0); MONO # 0.4 K/mm3 (0.0-0.8); NEUTROPHILS # 3.9 K/mm3 (1.8-7.7); PLATELET COUNT, AUTOMATED 265 k/mm3 (150-450); RED CELL DISTRIBUTION WIDTH 12.5 % (11.5-14.5); WHITE BLOOD COUNT 5.9 K/mm3 (4.0-10.0)
[2017-01-20 16:04] LABS: ALBUMIN 3.9 GM/DL (3.2-5.2); ALBUMIN/GLOBULIN RATIO 1.18 (1.00-1.93); ALKALINE PHOSPHATASE 53 U/L (45-117); ALT/SGPT 31 U/L (12-78); ANION GAP 7 MEQ/L (8-16); AST/SGOT 20 U/L (15-37); BILIRUBIN,TOTAL 0.5 MG/DL (0.2-1.0); BLOOD UREA NITROGEN 9 MG/DL (7-18); CALCIUM LEVEL 8.8 MG/DL (8.5-10.1); CARBON DIOXIDE LEVEL 27 MEQ/L (21-32); CHLORIDE LEVEL 107 MEQ/L (98-107); CREATININE FOR GFR 0.69 MG/DL (0.55-1.02); GLUCOSE, FASTING 83 MG/DL (70-105); POTASSIUM SERUM 4.7 MEQ/L (3.5-5.1); SODIUM LEVEL 141 MEQ/L (136-145); TOTAL PROTEIN 7.2 GM/DL (6.4-8.2)
== END ==
LOC: M WUC 12:35
PROVIDERS: ATTEND Physician Assistant
DX: R10.30 Lower abdominal pain, unspecified (principal)

== ENCOUNTER → 2017-02-24 | Outpatient (REF) | payer OTHER | LOC: M LAB REF 16:25 | PROVIDERS: ATTEND Physician Assistant | DX: R11.0 Nausea (principal) ==

== ENCOUNTER 2017-02-25 09:38 | Emergency (ER) | payer OTHER ==
[~2017-02-25] VITALS: Ht 167.6 cm; Wt 50.8 kg
[~2017-02-25 09:38] MED LIST changes: -ALPR1TAB3 PO; -ARIP1TAB4 PO; -HYDR1CAP25; -LATU40TA PO; -LITH300T2 PO; -ONDA4TAB5 PO; -QUET1TAB7 PO; -REGL10TA6 PO
[2017-02-25] MEDS ORDERED: HYDR1CAP25 (09:45)
[2017-02-25] MEDS ORDERED: ARIP1TAB4 PO (09:45)
[2017-02-25] MEDS ORDERED: ALPR1TAB3 PO (09:45)
[2017-02-25] MEDS ORDERED: LATU40TA PO (09:45)
[2017-02-25] MEDS ORDERED: LITH300T2 PO (09:45)
[2017-02-25] MEDS ORDERED: ONDA4TAB5 PO (09:45)
[2017-02-25] MEDS ORDERED: QUET1TAB7 PO (09:45)
[2017-02-25] MEDS ORDERED: NS 1,000 ML IV ONE (10:00)
[2017-02-25] MEDS ORDERED: KETOROLAC 30 MG/ML VIAL (J1885) IV ONE (10:00)
[2017-02-25] MEDS ORDERED: METOCLOPRAMIDE INJ 10MG/2ML VIAL (J2765) IV ONE (10:00)
[2017-02-25 10:45] LABS: BASO % 0.4 % (0.0-1.0); EOS % 0.3 % (0.0-3.0); IMMATURE GRANULOCYTE % 0.2 % (0-0); LYMPH # 1.7 10^3/uL (1.5-6.5); LYMPH % 18.6 % (24.0-44.0); MEAN CORPUSCULAR HEMOGLOBIN 29.4 pg (27.0-33.0); MEAN CORPUSCULAR HGB CONC 33.4 g/dl (32.0-36.5); MONO # 0.6 10^3/uL (0.0-0.8); MONO % 6.8 % (0.0-5.0); NEUTROPHILS # 6.7 10^3/uL (1.8-7.7); NEUTROPHILS % 73.7 % (36.0-66.0); PLATELET COUNT, AUTOMATED 294 10^3/uL (150-450); RED CELL DISTRIBUTION WIDTH 12.9 % (11.5-14.5); WHITE BLOOD COUNT 9.1 10^3/uL (4.0-10.0)
[2017-02-25 10:51] LABS: ADD MANUAL DIFFER NO; DIFF SLIDE NUMBER 118
[2017-02-25 11:19] LABS: ALBUMIN 4.1 GM/DL (3.2-5.2); ALBUMIN/GLOBULIN RATIO 1.37 (1.00-1.93); ALKALINE PHOSPHATASE 59 U/L (45-117); ALT/SGPT 18 U/L (12-78); AMYLASE 52 U/L (25-115); ANION GAP 7 MEQ/L (8-16); AST/SGOT 14 U/L (15-37); BILIRUBIN,DIRECT 0.2 MG/DL (0.0-0.2); BILIRUBIN,TOTAL 0.8 MG/DL (0.2-1.0); BLOOD UREA NITROGEN 13 MG/DL (7-18); CALCIUM LEVEL 9.2 MG/DL (8.5-10.1); CARBON DIOXIDE LEVEL 28 MEQ/L (21-32); CHLORIDE LEVEL 104 MEQ/L (98-107); CREATININE FOR GFR 0.83 MG/DL (0.55-1.02); GLUCOSE, FASTING 85 MG/DL (70-105); POTASSIUM SERUM 4.3 MEQ/L (3.5-5.1); SODIUM LEVEL 139 MEQ/L (136-145); TOTAL PROTEIN 7.1 GM/DL (6.4-8.2)
[2017-02-25 11:21] LABS: LITHIUM LEVEL < 0.20 MEQ/L (0.60-1.20)
[2017-02-25] MEDS ORDERED: REGL10TA6 PO (11:28)
[2017-02-25 11:47] VITALS: BP 107/60
== END 2017-02-25 11:45 | disposition home or self-care (01) ==
LOC: M ED 09:38
DX: R79.9 Abnormal finding of blood chemistry, unspecified (principal); R11.2 Nausea with vomiting, unspecified; F99 Mental disorder, not otherwise specified; F17.200 Nicotine dependence, unspecified, uncomplicated; Z79.899 Other long term (current) drug therapy
CPT/HCPCS: 80048; 80076; 80178; 81001; 81025; 82150; 83690; 85025; 96361; 96374; 96375; 99284; J1885; J2765